=== PATIENT | male | born 1935 | race Caucasian/White ===

== ENCOUNTER → 2017-06-18 | Outpatient (CLI) | payer MEDICARE, BC ==
[~2017-06-18] MED LIST: BRIN10DR EACHEYE; ESOM40CA25 PO; HYDR12.53 PO; KETO5DRO72 EACHEYE; LOTE5DRO2 EACHEYE; MIRA50TA PO; MOXI400T PO; PERI8TAB PO; PRED5TAB PO; TAFL1DRO OP; TRIA0.25 PO; ZINC1CAP2 PO; ZOLP10TA PO; [UNRECOGNIZED DRUG - CODE] TP
--- NOTE | 2017-06-18 13:25 | RAD ---
PET ONCOLOGY CLINICAL INDICATION: i restaging or follicular lymphoma. FDG PET-CT of the Body TECHNIQUE: The patient received an IV injection of 11.87 mCi 18F-FDG in the left antecubital fossa. After an initial uptake phase of approximately 60-90 minutes, a CT scan without oral contrast, without IV contrast was acquired. Subsequently, positron emission tomography images from the skull base to midthigh were obtained. CT, PET and fused images were reconstructed in transaxial, coronal, and sagittal projections and interpreted from a workstation. The patient's plasma glucose was 98 mg/dl. PRIOR STUDIES: 01/03/2016 CORRELATIVE STUDIES: 06/06/2015 FINDINGS: CT: Limited study due to lack of IV contrast. Visualized sections through the brain are within normal limits. No bulky cervical adenopathy. Prominent but not pathologically enlarged right axillary lymph nodes. Enlarged left axillary lymph nodes noted, the largest measuring 1.3 x 1.1 cm. Right chest wall Chemo-Port with its tip within SVC. Heart is normal in size. No pericardial or pleural effusion. Coronary artery disease noted. No mediastinal or hilar adenopathy. Bibasilar atelectasis. No pulmonary nodules. Noncontrast appearance of the liver, spleen, adrenals and pancreas is within normal limits. Splenic artery calcifications noted. Bilateral renal cysts. No hydronephrosis. Tortuous abdominal aorta. Enlarged para-aortic and mesenteric lymph nodes noted. Bilateral enlarged pelvic lymph nodes noted, the largest on the right measuring 1.8 x 1.2 cm. Enlarged left pelvic lymph node measures 2.2 x 1.7 cm. Enlarged left lower quadrant lymph node adjacent to psoas muscle measures 1.4 x 1.3 cm (series 3 image 290), previously 1.2 x 0.8 cm. The enlarged right para-aortic lymph node measures 1.7 x 1.3 cm (series 3 image 285), previously 1.0 x 1.0 cm. Bladder is within normal limits. Prostate is enlarged measuring 6.5 x 4.7 cm. No inguinal adenopathy. No suspicious bony lesions. PET: Left subauricular lymph node SUV max 4.0. Left lateral suboccipital lymph node SUV max 3.0. Left axillary lymph node is seen as 4.0. Right retrocrural lymph node SUV max 4.0. Para-aortic lymph nodes SUV max 5. 0. Right pelvic lymph node has a maximum 3.6. Left pelvic lymph node SUV max 4.0. IMPRESSION: PET-CT from the skull base to mid thigh demonstrates: 1. Interval increase in the size and number of retroperitoneal lymph nodes with hypermetabolic activity. 2. Left neck lymph nodes with hypermetabolic activity. Interval increase in the size of left axillary lymph node with hypermetabolic activity. 3. Enlarged pelvic lymph nodes with hypermetabolic activity. Findings suggest recurrent disease.
== END | disposition home or self-care (01) ==
LOC: PETSC 09:32
PROVIDERS: ATTEND Internal Medicine Hematology & Oncology
DX: C82.90 Follicular lymphoma, unspecified, unspecified site (principal); R91.1 Solitary pulmonary nodule
CPT/HCPCS: 78815; A9552

== ENCOUNTER → 2017-10-08 | Outpatient (CLI) | payer MEDICARE, BC | END | disposition home or self-care (01) | LOC: PETSC 07:38 | DX: C82.93 Follicular lymphoma, unspecified, intra-abdominal lymph nodes (principal); N40.0 Benign prostatic hyperplasia without lower urinary tract symptoms; Z85.72 Personal history of non-Hodgkin lymphomas | CPT/HCPCS: 78815; A9552 ==

== ENCOUNTER → 2018-10-14 | Outpatient (CLI) | payer MEDICARE, BC ==
[~2018-10-14] MED LIST changes: -HYDR12.53 PO; +HYDR12.575 PO; +[UNRECOGNIZED DRUG - CODE] TP; -[UNRECOGNIZED DRUG - CODE] TP
--- NOTE | 2018-10-14 12:26 | RAD ---
EXAM: PET/CT SKULL BASE TO MID THIGH. 10/14/2018 HISTORY: Follicular lymphoma, currently receiving therapy. COMPARISON: PET/CT 10/08/2017, 06/18/2017, 01/03/2016. TECHNIQUE: CT was performed from the skull base through the mid thighs for the purposes of attenuation correction. 13.9 mCi F-18 fluorodeoxyglucose (FDG) was administered intravenously. After an uptake period, positron emission tomography was performed from the skull base through the mid thighs. The PET and CT data were fused and interpreted in combination a dedicated workstation. Blood glucose level was 81 mg/dL at the time of FDG administration. Findings: Head and neck: No hypermetabolic lymphadenopathy or mass in this region. Chest: No hypermetabolic lymphadenopathy or mass in this region. Abdomen and pelvis: There is physiologic uptake in both kidneys with excretion into the urinary bladder. Patchy FDG uptake throughout the right hemicolon without associated soft tissue correlate, considered physiologic. No suspicious hypermetabolic mass or lymphadenopathy in this region. Osseous structures: No hypermetabolic osseous lesion. Uncorrected PET images: No additional abnormality. Low-dose CT images: Right IJ chest port terminating in the superior cavoatrial junction. Coronary artery calcifications. Stable elevation of the left hemidiaphragm. Cholecystectomy. Bilateral renal cysts. Stable ectasia of the infrarenal abdominal aorta with moderate aortoiliac calcified plaque. Marked enlargement of the prostate with indentation to the base of the urinary bladder. Impression: 1. No hypermetabolic lymphadenopathy to suggest lymphomatous involvement. 2. Marked prostate enlargement. Correlation with PSA is recommended.
== END | disposition home or self-care (01) ==
LOC: PETSC 09:43
PROVIDERS: ATTEND Internal Medicine Hematology & Oncology
DX: C82.93 Follicular lymphoma, unspecified, intra-abdominal lymph nodes (principal); R61 Generalized hyperhidrosis; N28.1 Cyst of kidney, acquired; I77.811 Abdominal aortic ectasia; I70.0 Atherosclerosis of aorta; N40.0 Benign prostatic hyperplasia without lower urinary tract symptoms; I25.10 Atherosclerotic heart disease of native coronary artery without angina pectoris; Z90.49 Acquired absence of other specified parts of digestive tract; Z88.1 Allergy status to other antibiotic agents; Z88.8 Allergy status to other drugs, medicaments and biological substances
CPT/HCPCS: 78815; A9552

== ENCOUNTER → 2020-03-05 | Outpatient (CLI) | payer MEDICARE, BC ==
[~2020-03-05] MED LIST changes: +ASPI-630 PO; +ATOR40TA59 PO; +BRIM5DRO4 RIGHTEYE; -BRIN10DR EACHEYE; +BRIN10DR RIGHTEYE; +ESOM20CA PO; +ISOS30TA19 PO; +MECL12.573 PO; +METO-239 PO; -MOXI400T PO; +MOXI400T13 PO; +MULT-445 PO; +NETA2.5D3 RIGHTEYE; +OXYB5TAB10 PO; +PREVAGEN PO; +SERT25TA PO; +TAFL1DRO LEFTEYE; -TAFL1DRO OP
[2020-03-05 09:24] LABS: BASO # 0.1 x10^3/uL (0.0-0.2); BASO % 1 % (0-3); EOS # 0.1 x10^3/uL (0.0-0.7); EOS % 1 % (0-3); HEMATOCRIT 44.7 % (39.0-53.0); HEMOGLOBIN 14.9 g/dL (13.0-17.5); LYMPH # 0.7 x10^3/uL (1.0-4.8); LYMPH % 8 % (24-48); MEAN CORPUSCULAR HEMOGLOBIN 30 pg (25-35); MEAN CORPUSCULAR HGB CONC 33 g/dL (31-37); MEAN CORPUSCULAR VOLUME 91 fL (79-100); MONO # 1.4 x10^3/uL (0.0-1.1); MONO % 16 % (0-9); NEUT # 6.7 x10^3/uL (1.8-7.7); NEUT % 75 % (31-73); PLATELET COUNT 204 x10^3/uL (140-400); RED BLOOD COUNT 4.91 x10^6/uL (4.30-5.70); RED CELL DISTRIBUTION WIDTH 14.9 % (11.5-14.5)
[2020-03-05 09:35] LABS: ALBUMIN 3.3 g/dL (3.4-5.0); ANION GAP 10 (6-14); BLOOD UREA NITROGEN 25 mg/dL (8-26); C-REACTIVE PROTEIN < 0.5 mg/L (0-3.3); CALCIUM 8.7 mg/dL (8.5-10.1); CARBON DIOXIDE 26 mmol/L (21-32); CHLORIDE 103 mmol/L (98-107); CREATININE 1.4 mg/dL (0.7-1.3); GFR 48.1; GLUCOSE 86 mg/dL (70-99); POTASSIUM 3.7 mmol/L (3.5-5.1); SODIUM 139 mmol/L (136-145)
[2020-03-05 09:40] LABS: PROTHROMBIN TIME PATIENT 12.7 SEC (11.7-14.0)
[2020-03-06 01:08] LABS: HEMOGLOBIN A1C 5.5 % (4.8-5.6)
== END | disposition home or self-care (01) ==
LOC: SURGPAT 11:18
PROVIDERS: ATTEND Orthopaedic Surgery
DX: Z01.818 Encounter for other preprocedural examination (principal); M17.11 Unilateral primary osteoarthritis, right knee; I70.0 Atherosclerosis of aorta; I25.10 Atherosclerotic heart disease of native coronary artery without angina pectoris; Z79.899 Other long term (current) drug therapy
CPT/HCPCS: 36415; 80048; 82040; 82306; 83036; 85025; 85610; 85730; 86140; 87641